=== PATIENT | female | born 1990 | race Two or more races ===

== ENCOUNTER 2016-09-15 10:30 | Emergency (ER) | payer BC, OTHER ==
[2016-09-15 10:37] VITALS: BP 112/73; PULSE 90; TEMP 99.3; BMI 36.6
--- NOTE | 2016-09-15 10:38 | PDOC ---
History of Present Illness - General Chief Complaint: Pain Stated Complaint: ABD PAIN Time Seen by Provider: 09/15/16 10:32 History Source: Patient Exam Limitations: No Limitations - History of Present Illness Travel History: No Initial Comments: 09/15/16 10:43 25 y/o female with lower abdominal pain since yesterday. Hurts with walking. No fever or chills. Denies discharge or dysuria. No back pain. Denies fall or trauma. States that pain is increasing and feels constipated. No N/V. No diarrhea. Has no sick contacts or recent travel. Has not taken anything for the pain. Abdominal Pain Onset Location: reports: suprapubic Pain Radiation: reports: no radiation Activities at Onset: reports: none Treatment Prior to Arrive: worse with: analgesics Alleviating Factors: improves with: None. worse with: Vomiting Past History - Past Medical History Allergies/Adverse Reactions: Allergies Allergy/AdvReac Type Severity Reaction Status Date / Time No Known Allergies Allergy Verified 09/15/16 10:32 Home Medications: Ambulatory Orders Ciprofloxacin [Cipro (Restricted To Id)] 250 mg PO BID #10 tablet 09/15/16 Other medical history: DENIES - Reproductive History Is Patient Now?: No - Psycho/Social/Smoking Cessation Hx Anxiety: No Suicidal Ideation: No Smoking History: Never smoked Hx Alcohol Use: No Drug/Substance Use Hx: No Review of Systems - Review of Systems Able to Perform ROS?: Yes Is the patient limited Frisian proficient: No Constitutional: Yes: Symptoms Reported. No: Chills, Fever HEENTM: Yes: Symptoms Reported Respiratory: Yes: Symptoms reported. No: Cough, Shortness of Breath Cardiac (ROS): No: Chest Pain, Irregular Heart Rate, Palpitations ABD/GI: Yes: Symptoms Reported, Constipated. No: Diarrhea, Nausea, Vomiting : Yes: Symptoms Reported. No: Burning, Dysuria, Discharge Musculoskeletal: No: Back Pain All Other Systems: Reviewed and Negative *Physical Exam - Vital Signs Last Vital Signs Temp Pulse Resp BP Pulse Ox 99.3 F 90 18 112/73 100 09/15/16 10:30 09/15/16 10:30 09/15/16 10:30 09/15/16 10:30 09/15/16 10:30 - Physical Exam General Appearance: Yes: Nourished, Appropriately Dressed. No: Apparent Distress HEENT: positive: EOMI, TATIANA, Normal ENT Inspection, Normal Voice, Pharynx Normal Neck: positive: Normal Thyroid, Supple. negative: Tender Respiratory/Chest: positive: Lungs Clear, Normal Breath Sounds, Respiratory Distress. negative: Chest Tender, Accessory Muscle Use Cardiovascular: positive: Regular Rhythm, Regular Rate, S1, S2 Vascular Pulses: Femoral (R): 4+, Femoral (L): 4+, Carotid (R): 4+, Carotid (L) : 4+, Dorsalis-Pedis (R): 4+, Doralis-Pedis (L): 4+ Gastrointestinal/Abdominal: positive: Normal Bowel Sounds, Tender (RLQ and suprapubic tenderness +BS, no LUQ or LLQ tenderness), Flat, Soft, Other ( Deferred at this time, risks and benefits discussed with pt). negative: Organomegaly, Pulsatile Mass, Hernia Lymphatic: negative: Adenopathy, Tenderness, Other Musculoskeletal: positive: Normal Inspection. negative: CVA Tenderness Extremity: positive: Normal Capillary Refill, Normal Inspection, Normal Range of Motion Integumentary: positive: Normal Color, Dry, Warm Neurologic: positive: benefits processor II-XII NML intact, Fully Oriented, Alert, Normal Mood/ Affect, Normal Response, Motor Strength 5/ ED Treatment Course - LABORATORY CBC & Chemistry Diagram: 09/15/16 10:55 09/15/16 10:55 - ADDITIONAL ORDERS Additional order review: 09/15/16 13:22 Pt is feeling better, will cover with Cipro for UTI Abdominal/pelvic CT normal WBC normal, as well as labs Pt is in agreement with plan If worsen will return to ER Progress Note - Progress Note Progress Note: Pt denies pain at this time Will treat for UTI In agreement with plan *DC/Admit/Observation/Transfer Diagnosis at time of Disposition: Abdominal pain Qualifiers: Abdominal location: unspecified location Qualified Code(s): R10.9 - Unspecified abdominal pain Urinary tract infection Qualifiers: Urinary tract infection type: acute cystitis Hematuria presence: without hematuria Qualified Code(s): N30.00 - Acute cystitis without hematuria - Discharge Dispostion Disposition: HOME Condition at time of disposition: Stable Admit: No - Patient Instructions Printed Discharge Instructions: DI for Abdominal Pain-Adult, DI for Urinary Tract Infection (UTI) Additional Instructions: Fluid, rest, Tylenol Cipro 250 mg 2x/day for 5 days If worsen return to ER
[2016-09-15] MEDS ORDERED: SODIUM CHLORIDE 0.9% 1000 ML INFUS.BAG IV ONE (10:42)
[2016-09-15 10:49] LABS: URINE APPEARANCE Clear; URINE BILIRUBIN Negative (NEGATIVE); URINE BLOOD Negative (NEGATIVE); URINE GLUCOSE (UA) Negative (NEGATIVE); URINE KETONE Negative (NEGATIVE); URINE LEUK ESTERASE Negative (NEGATIVE); URINE NITRITE Negative (NEGATIVE); URINE UROBILINOGEN 0.2 E.U/dl (0.2-1.0)
[2016-09-15 10:50] LABS: URINE COLOR YELLOW; URINE PROTEIN 1+ (NEGATIVE)
[2016-09-15 11:13] LABS: BASOPHIL 2.2 % (0-2.0); EOSINOPHIL 0.8 % (0-4.5); MCH 24.5 pg (25.7-33.7); MCHC 32.4 g/dl (32.0-36.0); MEAN CELL VOLUME 75.8 fl (80-96); MEAN PLT VOLUME 8.7 fl (7.5-11.1); NEUTROPHILS 68.7 % (42.8-82.8); PLATELET COUNT 373 K/MM3 (134-434); RDW 14.4 % (11.6-15.6); WHITE BLOOD COUNT 9.4 K/mm3 (4.0-10.8)
[2016-09-15 11:16] LABS: URINE MUCUS 1+; URINE RBC 0-2 /hpf (0-3)
[2016-09-15 11:25] LABS: ALK PHOS 94 U/L (32-92); ANION GAP 7 (8-16); BILIRUBIN,TOTAL 0.8 mg/dl (0.2-1.0); CALCIUM 9.1 mg/dl (8.4-10.2); CO2 23 mmol/L (22-28); COCKROFT - GAULT 223.805; CREATININE 0.6 mg/dl (0.6-1.3); GLUCOSE,RANDOM 99 mg/dl (74-106); SGOT/AST 16 U/L (10-42); SGPT/ALT 18 U/L (10-40); TOT PROT 7.6 g/dl (6.4-8.3)
[2016-09-15] MEDS ORDERED: CIPROFLOXACIN 250 MG TABLET (RESTRICTED TO ID) PO ONE ×2 (13:32→13:33)
== END 2016-09-15 13:35 | disposition home or self-care (01) ==
LOC: FER 10:30
DX: R10.9 Unspecified abdominal pain (principal); N30.00 Acute cystitis without hematuria
CPT/HCPCS: 36415; 74177-TC; 80053; 81003; 81015; 83690; 84703; 85025; 99285-25